=== PATIENT | male | born 1950 | race African-American/Black ===

== ENCOUNTER 2016-12-06 06:36 | Inpatient (IN) | payer OTHER ==
[~2016-12-06] VITALS: Ht 182.9 cm; Wt 96.4 kg
--- NOTE | 2016-12-06 06:55 | NUR ---
PT IS A 66 YEAR OLD MALE, PRESENTS TO ED VIA [facility] FROM [facility] WITH C/O HYPOTENSION BEFORE STARTING DIALYSIS TREATMENT. PER MEDIC, PT HAS DIALYSIS MWF, AND PT OCCASIONALLY HAS EXTRA FLUIDS REMOVED DUE TO PT INTAKING MORE FLUIDS. PT HAS FULL TREATMENT SUNDAY. PT HAD EXTRA FLUIDS REMOVED YESTERDAY AT [facility], AND PT REPORTED FELT OFF YESTERDAY AFTER TREATMENT. PT WENT TO [facility] FOR TX TODAY AND PT WAS HYPOTENSIVE BEFORE STARTING DIALYSIS, PLANE CAPTAIN CALL 911. PER PT, PT HAD SAME EPISODE X2 WEEKS AGO BUT DID NOT SEEK MEDICAL TREATMENT. MEDICS STARTED IV EN ROUTE AND INFUSED NS 400CC TOTAL. PT HAS SHUNT ON LEFT BICEP. PT BREAHTING IS EVEN AND UNLABORED, NO S.S OF RESPRAITORY DISTRESSS. SPEECH IS CLEAR AND APPROPRIATE. PT A/O X4. 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 PT DENIES ANY N/V/D/C. MSE PERFORMED BY DR. HOU.
--- NOTE | 2016-12-06 07:15 | NUR ---
PT LAYING IN ED GURNEY IN POSITION OF COMFORT, A/O X4, DENIES ANY PAIN, RESPS EVEN AND UNLABORED, SKIN WARM/DRY TO TOUCH, NO S/S OF DISTRESS NOTED. VSS. FAMILY AT BEDSIDE. CALL LIGHT WITHIN REACH.
[2016-12-06 07:38] LABS: BASOPHIL % 0.4 % (0-2); PLATELET COUNT 173 x10^3mcL (130-400)
[2016-12-06 07:41] LABS: RED CELL DISTRIBUTION WIDTH 17.2 % (11.5-14.5)
[2016-12-06 07:58] LABS: BILIRUBIN TOTAL 0.38 mg/dL (0.20-1.00); CALCIUM 8.8 mg/dL (8.5-10.1); CARBON DIOXIDE 30.9 mmol/L (21-32); PHOSPHOROUS 8.1 mg/dL (2.5-4.9); POTASSIUM SERUM 4.4 mmol/L (3.5-5.1); URIC ACID 5.4 mg/dL (3.5-7.2)
[2016-12-06 07:59] LABS: ALBUMIN 2.9 g/dL (3.4-5.0); CREATININE SERUM 8.8 mg/dL (0.7-1.3)
--- NOTE | 2016-12-06 08:25 | NUR ---
DR. HOU AT BEDSIDE DISCUSSING PLAN OF CARE WITH PT.
--- NOTE | 2016-12-06 08:43 | NUR ---
2500ML NS STARTED AT 200ML/HR PER SEPSIS PROTOCOL PER DR. HOU ORDER. PT RECEIVED A 400CC NS BOLUS EN ROUTE TO ED AND 250ML NS BOLUS ORDERED FOR TOTAL OF 650CC NS ALREADY INFUSED. PT'S BP 114/70. PT AA/O X4, DENIES ANY PAIN, RESPS EVEN AND UNLABORED, NO S/S OF DISTRESS NOTED.
[2016-12-06] MEDS ORDERED: DIFFERIN 0.1% TOP (08:47)
[2016-12-06] MEDS ORDERED: CELLCEPT500 MG PO (08:49)
[2016-12-06] MEDS ORDERED: AMLODIPINE BESY1 CA6 PO (08:50)
[2016-12-06] MEDS ORDERED: METOLAZONE5 M1 PO (08:51)
[2016-12-06] MEDS ORDERED: ATORVASTATIN CA40 M1 PO (08:52)
[2016-12-06] MEDS ORDERED: ASPIRIN LOW DOS81 MG PO (08:52)
[2016-12-06] MEDS ORDERED: HYDROXYCHLOROQ200 MG PO (08:52)
[2016-12-06] MEDS ORDERED: [UNRECOGNIZED DRUG - OTHER] TOP (08:55)
[2016-12-06] MEDS ORDERED: FUROSEMIDE40 MG PO (08:56)
[2016-12-06] MEDS ORDERED: CELEBREX200 MG PO (08:56)
[2016-12-06] MEDS ORDERED: PANOXYL10 GM TP (08:56)
[2016-12-06] MEDS ORDERED: PREDNISONE20 MG PO (08:57)
--- NOTE | 2016-12-06 09:14 | NUR ---
PT SITTING UP IN ED GURNEY IN POSITION OF COMFORT, VSS, AA/O X4, TALKING WITH AT BEDSIDE, PT CONTINUES TO DENY ANY PAIN, RESPS EVEN AND UNLABORED, SKIN WARM/DRY TO TOUCH, NO S/S OF DISTRESS NOTED. CALL LIGHT WITHIN REACH.
--- NOTE | 2016-12-06 09:21 | NUR ---
PT REPORTS HE STILL URINATES MINIMAL AMOUNT OF URINE, LAST URINATED AT APPROX 0400 TODAY. PT UNABLE TO PROVIDE URINE SAMPLE AT THIS TIME.
--- NOTE | 2016-12-06 09:36 | NUR ---
REPORT CALLED TO MEJIA HUDDLESTON, PT TO BE ADMITTED TO TELE ROOM 240B. PT IN NO DISTRESS.
[2016-12-06 10:21] VITALS: BP 112/72
--- NOTE | 2016-12-06 10:21 | NUR ---
RECIEVED PT FROM ED BY GORDON, WITH PRESENT. PT IS A/A/O/X4, COOPERATIVE AND PLEASANT. LUNGS CLEARS TO AUSCULTATION BILAT. RESPIRATIONS EQUAL AND UNLABORED BILAT. 93% SAT ON 1L NC. PLACED ON TELE 3 WITH NSR. PT DENIES CHEST PAIN/PRESSURE. MODERATE PALPABLE PULSES IN ALL EXTREMITIES. NO EDEMA PRESENT. SEBASTIAN GRAPH, HD ON M/W/F. PT STATES MILD GENERALIZED WEAKNESS BUT IS AMBULATORY. SKIN W/D/I. DENIES PAIN AT THIS TIME. IV ON RAC SALINE LOCKED. PRESENT AT BEDSIDE.
[2016-12-06 10:25] LABS: CHOLESTEROL/HDL RATIO 4.4
[2016-12-06 10:36] LABS: FREE T4 1.14 ng/dL (0.76-1.46); FREE THYROXINE INDEX 3.2 ug/dL (1.4-4.5); T4(THYROXINE) 8.6 ug/dL (4.7-13.3)
[2016-12-06 10:43] LABS: T3 TOTAL 1.32 ng/mL
[2016-12-06 12:57] LABS: microscopic required? YES; urine erythrocyte NEGATIVE (NEGATIVE)
[2016-12-06 13:30] LABS: AMPHETAMINE QUAL UR NONE DETECTED (NEG <=1000)
[2016-12-06 15:46] VITALS: BP 146/77
--- NOTE | 2016-12-06 16:16 | NUR ---
PT RESTING IN BED. DENIES PAIN OR DISCOMFORT. PRESENT AT BEDSIDE. CALL LIGHT IN REACH. WILL CONTINUE TO MONITOR.
--- NOTE | 2016-12-06 16:28 | NUR ---
SPOKE WITH DR. MAGAÑA REGARDING PT'S ONGOING BOLUS BEING CONT FROM ED. PT MISSED HIS HD TX TODAY AND HAS RECEIVE 250ML BOLUS IN ED AND 400ML BOLUS BY PARAMEDICS. PT HAD 2.5L BOLUS ORDERED THAT STARTED AROUND 9AM AT 200ML/HR, PT HAS 2ND LITER INFUSING NOW AND MOST RECENT B/P 146/. DISCUSSED WITH DR. MAGAÑA IF BOLUS SHOULD CONT SINCE SIRS HAS NOT BEEN MET AND PT HAS NOT HAD A SOURCE OF INFECTION IDENTIFIED YET. PER MD OK TO STOP BOLUS AT THIS TIME AND SL THE PT.
--- NOTE | 2016-12-06 16:30 | NUR ---
MADE AWARE BY US THAT HD NURSE HAS BEEN MADE AWARE OF ORDER FOR HD TREATMENT FOR TOMORROW.
[2016-12-06 17:00] VITALS: BP 130/76
[2016-12-06 17:15] VITALS: BP 124/74
[2016-12-06 17:36] VITALS: BP 118/74
--- NOTE | 2016-12-06 19:30 | NUR ---
PT IS AAOX4. LUNGS SOUNDS ARE CTA ON RA. DENIES ANY PAIN AT THIS TIME. PT TELE 3 WITH SINUS TACH AT 101. ABD ROUND, SOFT, NON-TENDER. BOWEL SOUNDS ACTIVE. IV IN THE RAC, CURRENTLY SALINE LOCKED. BED IS IN LOWEST POSITION WITH CALL LIGHT WITHIN REACH. WILL CONTINUE TO MONITOR.
--- NOTE | 2016-12-06 19:37 | NUR ---
PT A/A/O/X4. ON TELE 3 WITH NSR. RESPIRATIONS EQUAL AND UNLABORED BILAT. NO COMPLAINTS OF CHEST PAIN/PRESSURE. PT TOLERATED FOOD. NO COMPLAINTS OF N/V. PT RESTING IN BED. NO APPARENT SIGNS OF DISCOMFORT. CALL LIGHT IN REACH.
[2016-12-06 21:50] VITALS: BP 115/60
--- NOTE | 2016-12-07 01:40 | NUR ---
PT IS RESTING COMFORTABLY WITH NO COMPLANTS OF PAIN. IV IS INFUSING WELL. BED IS LOWEST POSITION AND CALL LIGHT IS WITHIN REACH. WILL CONTINUE TO MONITOR.
[2016-12-07 06:02] VITALS: BP 136/72
[2016-12-07 06:06] LABS: CALCIUM 8.5 mg/dL (8.5-10.1); CARBON DIOXIDE 27.6 mmol/L (21-32); PHOSPHOROUS 8.5 mg/dL (2.5-4.9); POTASSIUM SERUM 3.9 mmol/L (3.5-5.1)
[2016-12-07 06:09] LABS: CREATININE SERUM 9.8 mg/dL (0.7-1.3)
--- NOTE | 2016-12-07 06:49 | NUR ---
PT IS RESTING COMFORTABLY IN BED. ALL NEEDS HAVE BEEN MET. NO ACUTE DISTRESS NOTED. CALL LIGHT WITHIN REACH. WILL ENDORSE TO MORNING SHIFT.
--- NOTE | 2016-12-07 08:15 | NUR ---
RECIEVED PT A/A/O/X4. PT ON TELE 3 WITH NSR. NO COMPLAINTS OF CHEST PAIN/PRESSURE. RESPIRATIONS EQUAL AND UNLABORED BILAT. SAT 98% ON ROOM AIR. NO APPARENT DISTRESS. PALPABLE MOD PULSES IN ALL EXTREMITIES. AV SHUNT IN SEBASTIAN. THRILL PRESENT. VOIDS FREELY. DENIES BURNING. ACTIVE BS X4. PT HAS STEADY SLOW GAIT. PT STATES MILD GENERALIZED WEAKNESS. SKIN W/D/I. DENIES PAIN AT THIS TIME. IV ON RAC, WNL. PT PLEASANT AND COOPERATIVE. PRESENT AT BEDSIDE. CALL LIGHT IN REACH.
[2016-12-07 09:27] VITALS: BP 124/63
--- NOTE | 2016-12-07 11:18 | NUR ---
PT RESTING IN BED RECIEVING HD. NO APPARENT DISTRESS. DENIES PAIN/DISCOMFORT, AND HD NURSE PRESENT AT BEDSIDE. CALL LIGHT IN REACH. WILL CONTINUE TO MONITOR.
[2016-12-07 13:25] VITALS: BP 142/81
[2016-12-07 17:41] VITALS: BP 132/65
--- NOTE | 2016-12-07 18:48 | NUR ---
PT RESTING COMFORTABLY IN BED NO APPARENT DISTRESS. DENIES PAIN AT THIS TIME. ON TELE 3 WITH NORMAL SINUS RHYTHM. PT DENIES CHEST PAIN/PRESSURE. RESPIRATIONS EQUAL AND UNLABORED BILAT. PT RECIEVED HD TODAY WITH REMOVAL OF 1.5L. PT TOLERATED WELL. NO COMPLAINTS OF DIZZINESS/DISCOMFORT/PAIN. CALL LIGHT IN REACH.
--- NOTE | 2016-12-07 19:59 | NUR ---
AWAKE AND VERBALLY RESPONISVE. ABLE TO MAKE NEEDS KNOWN. SKIN WARM AND DRY TO TOUCH WITH AV SHUNT ON THE SEBASTIAN WITH GOOD THRILL AND BRUIT FOR HEMODIALYSIS ACCESS. DENIES ANY PAIN/DISCOMFORT AT THIS TIME.
[2016-12-07 22:14] VITALS: BP 139/79
--- NOTE | 2016-12-08 00:01 | NUR ---
TOLERATED HS SNACK. NO S/S OF ASPIRATION. KEPT CLEAN AND DRY. CALL LIGHT WITHIN REACH. NO S/S OF PAIN/DISCOMFORT.
[2016-12-08 06:18] VITALS: BP 135/83
[2016-12-08 06:18] LABS: BASOPHIL % 0.3 % (0-2); PLATELET COUNT 132 x10^3mcL (130-400)
[2016-12-08 06:29] LABS: CALCIUM 8.8 mg/dL (8.5-10.1); POTASSIUM SERUM 4.7 mmol/L (3.5-5.1)
[2016-12-08 06:32] LABS: CREATININE SERUM 7.6 mg/dL (0.7-1.3)
--- NOTE | 2016-12-08 06:39 | NUR ---
IV ACCESS AT THE RAC TOTALLY PULLED OUT WITH SLIGHT BLEEDING, PRESSURE DRESSING APPLIED. NEW IV ACCESS STARTED AT THE RIGHT HAND USING G#22 WITH GOOD BLOOD FLOW RETURN, PT TOELRATED PROCEDURE WELL. BUN/CREAT=51/7.6, WILL HAVE HD TODAY. AV SHUNT LUE INTACT WITH GOOD THRILL AND BRUIT. ALL NEEDSA TTENDED.
[2016-12-08 06:53] LABS: RED CELL DISTRIBUTION WIDTH 17.5 % (11.5-14.5)
--- NOTE | 2016-12-08 07:20 | NUR ---
PT SITTING AT SIDE OF BED. EFFORTLESS BREATHING ON ROOM AIR. IV ACCESS SALINE LOCKED TO RIGHT HAND #[id number]. CALL LIGHT WITHIN REACH.
[2016-12-08 10:55] VITALS: BP 145/66
--- NOTE | 2016-12-08 12:00 | NUR ---
DIALYSIS SESSION STARTED. RN AT BEDSIDE. PT TOLERATING WELL. AT BEDSIDE. WILL CONTINUE TO MONITOR.
[2016-12-08 14:13] VITALS: BP 163/88
--- NOTE | 2016-12-08 15:21 | NUR ---
DIALYSIS DONE. PT TOLERATED WELL. POST DIALYSIS BP: 136/84 PT STATES FEELING WELL. NO DISCOMFORT REPORTED. CALL LIGHT WITHIN REACH.
[2016-12-08 15:25] VITALS: BP 135/81
[2016-12-08 16:25] VITALS: BP 135/87
[2016-12-08 16:50] VITALS: Ht 182.9 cm; Wt 96.4 kg
--- NOTE | 2016-12-08 17:10 | NUR ---
DISCHARGE INSTRUCTIONS GIVEN TO PATIENT AND . PT VERBALIZED UNDERSTANDING FOR FOLLOW UP APPOINTMENT AND TO CONTINUE HOME MEDICATION SCHEDULE. IV DC'D CATHETER INTACT, NO PHLEBITIS. TELE B OX REMOVED. PT AMBULATED OUT OF UNIT SAFELY, ACCOMPANIED BY AND ELECTRICAL CONTROL ASSEMBLER.
== END 2016-12-08 17:10 | disposition home or self-care (01) | DRG 640 ==
LOC: ED 06:36 → DU 08:41
PROVIDERS: Emergency Medicine; Internal Medicine; ADMIT Family Medicine
DX: E87.8 Other disorders of electrolyte and fluid balance, not elsewhere classified (principal); N17.0 Acute kidney failure with tubular necrosis; N18.6 End stage renal disease; N39.0 Urinary tract infection, site not specified; E44.0 Moderate protein-calorie malnutrition; I12.0 Hypertensive chronic kidney disease with stage 5 chronic kidney disease or end stage renal disease; M32.14 Glomerular disease in systemic lupus erythematosus; E87.2 Acidosis; E87.0 Hyperosmolality and hypernatremia; E86.0 Dehydration; E83.39 Other disorders of phosphorus metabolism; R03.1 Nonspecific low blood-pressure reading; D63.1 Anemia in chronic kidney disease; E78.5 Hyperlipidemia, unspecified; Z68.28 Body mass index [BMI] 28.0-28.9, adult; Z99.2 Dependence on renal dialysis
CPT/HCPCS: 82962; 83880; 84439; 90732; A4719; J0696; J1720; J7030; J7040; J7050; J7512

== ENCOUNTER 2017-02-28 09:49 | Emergency (ER) | payer OTHER ==
[~2017-02-28] VITALS: Ht 182.9 cm; Wt 106.6 kg
[~2017-02-28 09:49] MED LIST: AMLODIPINE BESY1 CA6 PO; ASPIRIN LOW DOS81 MG PO; ATORVASTATIN CA40 M1 PO; CELEBREX200 MG PO; CELLCEPT500 MG PO; DIFFERIN 0.1% TOP; FUROSEMIDE40 MG PO; HYDROXYCHLOROQ200 MG PO; METOLAZONE5 M1 PO; PANOXYL10 GM TP; PREDNISONE20 MG PO; [UNRECOGNIZED DRUG - OTHER] TOP
[2017-02-28 11:19] LABS: BASOPHIL % 0.3 % (0-2); PLATELET COUNT 147 x10^3mcL (130-400)
[2017-02-28 11:22] LABS: BILIRUBIN TOTAL 0.4 mg/dL (0.20-1.00); CALCIUM 8.8 mg/dL (8.5-10.1); CARBON DIOXIDE 34.6 mmol/L (21-32); POTASSIUM SERUM 3.4 mmol/L (3.5-5.1); URIC ACID 2.2 mg/dL (3.5-7.2)
[2017-02-28 11:25] LABS: ALBUMIN 2.8 g/dL (3.4-5.0); CREATININE SERUM 5.8 mg/dL (0.7-1.3); TOTAL PROTEIN, SERUM 8.3 g/dL (6.4-8.2)
[2017-02-28 11:29] LABS: RED CELL DISTRIBUTION WIDTH 16.4 % (11.5-14.5)
[2017-02-28 12:11] VITALS: BP 129/70
== END 2017-02-28 12:16 | disposition home or self-care (01) ==
LOC: ED 09:49
PROVIDERS: Emergency Medicine
DX: R55 Syncope and collapse (principal); I12.9 Hypertensive chronic kidney disease with stage 1 through stage 4 chronic kidney disease, or unspecified chronic kidney disease; N18.9 Chronic kidney disease, unspecified; Z99.2 Dependence on renal dialysis
CPT/HCPCS: 83880; J7040; Q0092

== ENCOUNTER 2017-05-07 11:06 | Emergency (ER) | payer OTHER ==
[2017-05-07 12:17] VITALS: BP 133/91
== END 2017-05-07 12:17 | disposition home or self-care (01) ==
LOC: ED 11:06
DX: T82.838A Hemorrhage due to vascular prosthetic devices, implants and grafts, initial encounter (principal); E78.5 Hyperlipidemia, unspecified; I10 Essential (primary) hypertension; Z87.438 Personal history of other diseases of male genital organs; Z99.2 Dependence on renal dialysis; Z79.899 Other long term (current) drug therapy; Y92.89 Other specified places as the place of occurrence of the external cause

== ENCOUNTER 2018-04-11 16:30 | Inpatient (IN) | payer OTHER ==
[~2018-04-11] VITALS: Ht 182.9 cm; Wt 92.0 kg
[2018-04-11 16:36] VITALS: Ht 182.9 cm; Wt 92.0 kg
[2018-04-11 17:01] LABS: BASOPHIL % 0.8 % (0-2); PLATELET COUNT 175 x10^3mcL (130-400)
[2018-04-11 17:02] LABS: RED CELL DISTRIBUTION WIDTH 16.5 % (11.5-14.5)
[2018-04-11 17:21] LABS: BILIRUBIN TOTAL 0.3 mg/dL (0.20-1.00); CALCIUM 10.3 mg/dL (8.5-10.1); CARBON DIOXIDE 28.8 mmol/L (21-32); POTASSIUM SERUM 4.1 mmol/L (3.5-5.1)
[2018-04-11 17:22] LABS: ALBUMIN 3.1 g/dL (3.4-5.0); TOTAL PROTEIN, SERUM 8.8 g/dL (6.4-8.2)
[2018-04-11 17:23] LABS: CREATININE SERUM 8.4 mg/dL (0.7-1.3)
[2018-04-11] MEDS ORDERED: [UNRECOGNIZED DRUG - CODE] IV (18:40)
[2018-04-11] MEDS ORDERED: RENVELA800 M1 PO (18:40)
[2018-04-11] MEDS ORDERED: CARVEDILOL12.5 M1 PO (18:41)
[2018-04-11] MEDS ORDERED: BRILINTA90 M1 PO (18:41)
[2018-04-11] MEDS ORDERED: LOT20 PO (18:41)
[2018-04-11] MEDS ORDERED: MIDODRINE HCL5 M1 PO (18:42)
[2018-04-11 19:08] LABS: MAGNESIUM 2.3 mg/dL (1.8-2.4); PHOSPHOROUS 3.3 mg/dL (2.5-4.9)
[2018-04-11 19:10] LABS: CHOLESTEROL/HDL RATIO 5.8
[2018-04-11 19:16] LABS: T3 TOTAL 1.13 ng/mL
[2018-04-11 19:20] LABS: FREE T4 1.32 ng/dL (0.76-1.46); FREE THYROXINE INDEX 3.5 ug/dL (1.4-4.5); T4(THYROXINE) 9.6 ug/dL (4.7-13.3)
[2018-04-11 19:37] VITALS: BP 215/109
[2018-04-11 21:28] VITALS: BP 189/75
[2018-04-11] MEDS ORDERED: HYDROXYCHLOROQ200 MG PO (23:21)
[2018-04-12] VITALS (7 sets, daily range): BP systolic 145–175; BP diastolic 61–79
[2018-04-12 06:21] LABS: CALCIUM 9.6 mg/dL (8.5-10.1); CARBON DIOXIDE 27.5 mmol/L (21-32); MAGNESIUM 1.9 mg/dL (1.8-2.4); PHOSPHOROUS 3.7 mg/dL (2.5-4.9); POTASSIUM SERUM 4.5 mmol/L (3.5-5.1)
[2018-04-12 06:26] LABS: BASOPHIL % 0.2 % (0-2); PLATELET COUNT 168 x10^3mcL (130-400)
[2018-04-12 06:36] LABS: CREATININE SERUM 9.1 mg/dL (0.7-1.3)
[2018-04-12 06:40] LABS: RED CELL DISTRIBUTION WIDTH 16.4 % (11.5-14.5)
[2018-04-12 07:08] LABS: microscopic required? YES; urine erythrocyte NEGATIVE (NEGATIVE)
[2018-04-12 07:38] LABS: AMPHETAMINE QUAL UR NONE DETECTED (See below)
== END 2018-04-12 22:00 | disposition short-term general hospital (02) | DRG 280 ==
LOC: ED 16:30 → DU 18:32
PROVIDERS: Emergency Medicine; Internal Medicine
DX: I21.A1 Myocardial infarction type 2 (principal); N18.6 End stage renal disease; I12.0 Hypertensive chronic kidney disease with stage 5 chronic kidney disease or end stage renal disease; E44.1 Mild protein-calorie malnutrition; I16.0 Hypertensive urgency; E78.5 Hyperlipidemia, unspecified; M32.14 Glomerular disease in systemic lupus erythematosus; I25.10 Atherosclerotic heart disease of native coronary artery without angina pectoris; D53.9 Nutritional anemia, unspecified; Z99.2 Dependence on renal dialysis; Z68.31 Body mass index [BMI] 31.0-31.9, adult; Z95.5 Presence of coronary angioplasty implant and graft; Z86.73 Personal history of transient ischemic attack (TIA), and cerebral infarction without residual deficits
CPT/HCPCS: 33011; 83880; 84439; A4719; J1644; J3490; J7030; J7512

== ENCOUNTER 2019-05-23 22:01 | Emergency (ER) | payer OTHER ==
[~2019-05-23] VITALS: Ht 182.9 cm; Wt 97.1 kg
[~2019-05-23 22:01] MED LIST changes: +BRILINTA90 M1 PO; +CARVEDILOL12.5 M1 PO; +LOT20 PO; +MIDODRINE HCL5 M1 PO; +RENVELA800 M1 PO; +[UNRECOGNIZED DRUG - CODE] IV
[2019-05-23 22:07] VITALS: Ht 182.9 cm; Wt 97.1 kg
[2019-05-23 23:12] LABS: BASOPHIL % 0.4 % (0-2); PLATELET COUNT 227 x10^3mcL (130-400)
[2019-05-23 23:15] LABS: RED CELL DISTRIBUTION WIDTH 16.1 % (11.5-14.5)
[2019-05-23 23:29] LABS: CARBON DIOXIDE 29.2 mmol/L (21-32); POTASSIUM SERUM 4.2 mmol/L (3.5-5.1)
[2019-05-23 23:37] LABS: CREATININE SERUM 9.6 mg/dL (0.7-1.3)
[2019-05-24 03:57] VITALS: BP 112/59
== END 2019-05-24 03:57 | disposition short-term general hospital (02) ==
LOC: ED 22:01
PROVIDERS: Emergency Medicine
DX: A41.9 Sepsis, unspecified organism (principal); L03.032 Cellulitis of left toe; I96 Gangrene, not elsewhere classified; I12.0 Hypertensive chronic kidney disease with stage 5 chronic kidney disease or end stage renal disease; N18.6 End stage renal disease; N17.9 Acute kidney failure, unspecified; E78.5 Hyperlipidemia, unspecified; Z86.2 Personal history of diseases of the blood and blood-forming organs and certain disorders involving the immune mechanism
CPT/HCPCS: 87804; J2270; J2405; J2543; J3370; J7040; J7050; Q0092; Q9967